=== PATIENT | female | born 1985 | race Caucasian/White ===

== ENCOUNTER → 2024-10-13 08:41 | Outpatient (CLI) | payer OTHER, SELFPAY ==
--- NOTE | 2024-10-13 | DI.MG.S_ITS ---
BILATERAL DIGITAL DIAGNOSTIC MAMMOGRAM 3D/2D SHORT-TERM FOLLOW-UP: 10/13/2024 CLINICAL: Short term follow up of the right breast, due for bilateral imaging. Comparison is made to exam dated: 10/29/2023 mammogram - out side. The breasts are heterogeneously dense, which may obscure small masses (category c / 51-75% glandular tissue). There are grouped coarse punctate round calcifications in the right breast at 10 o'clock anterior depth. These are not significantly changed. No other significant masses, calcifications, or other findings are seen in either breast. IMPRESSION: PROBABLY BENIGN The grouped coarse punctate round calcifications in the right breast are probably benign. A follow-up bilateral mammogram in 12 months is recommended to document cane pusher stability. Findings and recommendations were conveyed to the patient during today's evaluation. Based on the Tyrer Cuzick model (a risk assessment model) the patient's lifetime risk is 11.9% and her 10 year risk is 1.2%. According to the ACR, ACS, and NCCN guidelines, an annual breast MRI exam along with mammogram is recommended if the patient's lifetime risk is 20% or greater. This exam was interpreted at Station ID: [id number]. NOTE: For mammograms, a report in lay terms will be sent to the patient. Approximately 15% of breast malignancies will not be visualized mammographically. In the management of a palpable breast mass, a negative mammogram must not discourage biopsy of a clinically suspicious lesion. Electronically Signed By: Kendall Rodríguez M.D. aty/:10/13/2024 09:33:36 letter sent: Followup Recommended ACR BI-RADS Category 3: Probably Benign
== END ==
PROVIDERS: PCP Family Medicine; Referring Provider Family Medicine; Visit Provider Family Medicine
DX: R92.8 Other abnormal and inconclusive findings on diagnostic imaging of breast (principal); R92.1 Mammographic calcification found on diagnostic imaging of breast; N60.19 Diffuse cystic mastopathy of unspecified breast; R92.333 Mammographic heterogeneous density, bilateral breasts
CPT/HCPCS: 77066; G0279